=== PATIENT | male | born 1980 ===

== ENCOUNTER 2023-11-06 10:15 | Emergency (ER) | payer SELFPAY ==
[2023-11-06] MEDS: Diphtheria,Pertussis(Acell),Tetanus Vaccine 0.5 ML Syringe IM ONE (11:22)
[2023-11-06] MEDS: Lidocaine 1% 5 ML VIAL INJECT ONE (11:23)
== END 2023-11-06 12:05 | disposition home or self-care (01) ==
LOC: DL.ED 10:15
DX: S61.217A Laceration without foreign body of left little finger without damage to nail, initial encounter (principal); Z23 Encounter for immunization; Z88.0 Allergy status to penicillin; W26.8XXA Contact with other sharp object(s), not elsewhere classified, initial encounter
CPT/HCPCS: 12001; 73140-F4; 90471; 90715; 99282; 99283-25; J3490